=== PATIENT | male | born 2000 | race Two or more races ===

== ENCOUNTER → 2024-04-03 | Outpatient (BNVA) | payer MEDICAID, SELFPAY | END | disposition home or self-care (01) | PROVIDERS: PCP Nurse Practitioner Primary Care; Referring Provider Nurse Practitioner Primary Care; Visit Provider Nurse Practitioner Primary Care | DX: I45.19 Other right bundle-branch block (principal); R01.1 Cardiac murmur, unspecified; Z23 Encounter for immunization | CPT/HCPCS: 90471; 90686; 99213 ==